=== PATIENT | female | born 1995 | race Hispanic/Latino ===

== ENCOUNTER 2022-02-15 14:45 | Emergency (ER) | payer BC ==
[~2022-02-15] VITALS: Ht 152.4 cm; Wt 72.1 kg
[2022-02-15] MEDS ORDERED: OSEL75 PO (15:54)
[2022-02-15 15:58] VITALS: BP 134/85
[2022-02-15] MEDS ORDERED: OSELTAMIVIR PHOSPHATE 75 MG CAP PO SCH (16:00)
== END 2022-02-15 16:05 | disposition home or self-care (01) ==
LOC: EDH 14:45
DX: O98.513 Other viral diseases complicating pregnancy, third trimester (principal); J10.1 Influenza due to other identified influenza virus with other respiratory manifestations; Z20.822 Contact with and (suspected) exposure to COVID-19; Z3A.36 36 weeks gestation of pregnancy
CPT/HCPCS: 99283; 87635; 87880; 87804 ×2; C9803